=== PATIENT | male | born 1955 | race Caucasian/White ===

== ENCOUNTER 2020-01-28 23:57 | Emergency (ER) | payer BC ==
[2020-01-28] MEDS ORDERED: Azithromycin 250 MG Tab PO ONE (23:58)
--- NOTE | 2020-01-29 00:23 | EDM.PDOC ---
ED HPI GENERAL MEDICAL PROBLEM - General Chief Complaint: ENT Problem Stated Complaint: SINUS Time Seen by Provider: 01/29/20 00:22 Source of Information: Reports: Patient History Limitations: Reports: No Limitations - History of Present Illness INITIAL COMMENTS - FREE TEXT/NARRATIVE: Sinus congestion for a few days. Mild cough. No fever. - Related Data Allergies Allergy/AdvReac Type Severity Reaction Status Date / Time No Known Allergies Allergy Verified 01/29/20 00:05 Social & Family History - Tobacco Use Smoking Status *Q: Current Every Day Smoker Years of Tobacco use: 55 Packs/Tins Daily: 1 ED ROS ENT - Review of Systems Review Of Systems: Comprehensive ROS is negative, except as noted in HPI. ED EXAM, ENT - Physical Exam Exam: See Below Exam Limited By: No Limitations General Appearance: Alert, WD/WN, No Apparent Distress Ears: Normal External Exam Nose: Normal Inspection Mouth/Throat: Normal Inspection Course - Vital Signs Last Recorded V/S: Last Vital Signs Temp 98.1 F 01/29/20 00:12 Pulse 100 01/29/20 00:12 Resp 18 01/29/20 00:12 BP 192/105 H 01/29/20 00:12 Pulse Ox 96 01/29/20 00:12 - Orders/Labs/Meds Meds: Medications Discontinued Medications Generic Name Dose Route Start Last Admin Trade Name Gerri PRN Reason Stop Dose Admin Azithromycin 1,500 mg 01/28/20 23:58 Zithromax PO 01/28/20 23:59 .STK-MED ONE Departure - Departure Time of Disposition: 00:22 Disposition: Home, Self-Care 01 Condition: Good Clinical Impression: Bacterial sinusitis - Discharge Information Instructions: Sinusitis, Adult, [id number], Azithromycin tablets Referrals: PCP,None [Primary Care Provider] - Forms: ED Department Discharge Additional Instructions: Azithromycin, Take 2 tabs today and 1 tab daily for the next 4 days. See attached information. Follow up with your primary physician as needed. Sepsis Event Note (ED) - Evaluation Sepsis Screening Result: No Definite Risk - Problem List & Annotations (1) Bacterial sinusitis SNOMED Code(s): 377273614 Code(s): J32.9 - CHRONIC SINUSITIS, UNSPECIFIED; B96.89 - OTH BACTERIAL AGENTS THE CAUSE OF DISEASES CLASSD [id number] Status: Acute (2) HTN (hypertension) SNOMED Code(s): 73366605 Code(s): I10 - ESSENTIAL (PRIMARY) HYPERTENSION Status: Acute Qualifiers: Hypertension type: essential hypertension Qualified Code(s): I10 - Essential (primary) hypertension - Problem List Review Problem List Initiated/Reviewed/Updated: Yes - My Orders Last 24 Hours: Zpak - Assessment/Plan Plan: Zpak. Discussed BP. Needs follow up with PCP
== END 2020-01-29 00:30 | disposition home or self-care (01) ==
LOC: FB.ED 23:57
DX: J32.9 Chronic sinusitis, unspecified (principal); B96.89 Other specified bacterial agents as the cause of diseases classified elsewhere; F17.210 Nicotine dependence, cigarettes, uncomplicated
CPT/HCPCS: 99283; A9270-GY